=== PATIENT | female | born 1975 | race African-American/Black ===

== ENCOUNTER 2018-07-12 08:11 | Outpatient (CLI) | payer MEDICAID ==
--- NOTE | 2018-07-12 11:31 | ULT ---
TRANSABDOMINAL AND TRANSVAGINAL PELVIC ULTRASOUND: Date: 07/12/18 PROVIDED CLINICAL HISTORY: Abnormal uterine bleeding. FINDINGS: Uterus measures about 12.0 x 5.2 x 6.2 cm and demonstrates a normal sonographic appearance to the seneca rine myometrium. Endometrial thickness is about 1.3 cm. Right ovary measures about 1.6 x 2.5 x 1.5 cm and appears sonographically unremarkable. Left ovary measures about 2.5 x 4.2 x 2.1 cm and appears sonographically unremarkable. Color Doppler and spectral analysis of the ovarian waveforms demonstrates normal flow bilaterally. There is no evidence for free pelvic fluid. IMPRESSION: Nonspecific prominence of the uterine endometrium. POS: [facility]
== END 2018-07-12 08:12 | disposition home or self-care (01) ==
LOC: BICULT 08:11
PROVIDERS: ATTEND Family Medicine
DX: N93.9 Abnormal uterine and vaginal bleeding, unspecified (principal)
CPT/HCPCS: 76856

== ENCOUNTER 2018-12-11 14:47 | Outpatient (CLI) | payer MEDICAID ==
--- NOTE | 2018-12-11 15:15 | MMO ---
Bilateral MAMMO Bilat Screen [facility]. CLINICAL HISTORY: Patient is 43 years old and is seen for screening. The patient has the following family history of breast cancer: paternal grandmother, malignant (generic). The patient has no personal history of cancer. VIEWS: The views performed were: bilateral craniocaudal and bilateral mediolateral oblique. This study has been interpreted with the assistance of computer-aided detection. MAMMOGRAM FINDINGS: The breasts are heterogeneously dense, which could obscure a lesion on mammography. There are benign appearing calcifications seen in both breasts. There are no suspicious masses, suspicious calcifications, or new areas of architectural distortion. IMPRESSION: THERE IS NO MAMMOGRAPHIC EVIDENCE OF MALIGNANCY. A ROUTINE FOLLOW-UP MAMMOGRAM IN 1 YEAR IS RECOMMENDED. ACR BI-RADS Category 2 - Benign finding MAMMOGRAPHY NOTE: 1. A negative mammogram report should not delay a biopsy if a dominant of clinically suspicious mass is present. 2. Approximately 10% to 15% of breast cancers are not detected by mammography. 3. Adenosis and dense breasts may obscure an underlying neoplasm.
== END 2018-12-11 14:48 | disposition home or self-care (01) ==
LOC: BICMAMMO 14:47
PROVIDERS: ATTEND Family Medicine
DX: Z12.31 Encounter for screening mammogram for malignant neoplasm of breast (principal); Z80.3 Family history of malignant neoplasm of breast
CPT/HCPCS: 77067

== ENCOUNTER 2019-07-09 09:14 | Emergency (ER) | payer MEDICAID, SELFPAY ==
[2019-07-09 10:20] LABS: Band 4 % (5-11); Eosinophils 3 % (0-10); Hemoglobin 7.2 g/dL (12.0-16.0); Hypochromia MODERATE=16-30 cells (100X) (0-5/hpf); Lymphocytes 24 % (21-51); MDiff Complete? YES; Mean Corpuscular Hemoglobin 16.6 pg (27.0-31.0); Mean Corpuscular Volume 57.1 fL (78.0-98.0); Mean Platelet Volume 10.5 fL (7.4-10.4); Microcytosis MARKED = >30 cells (100X) (0-5/hpf); Monocytes 4 % (0-10); Neutrophil 65 % (42-75); Nucleated RBC 1 % (0); Ovalocytes SLIGHT = 2-5 cells (100X) (0-1/hpf); Platelet Count 46 thou/uL (130-400); Platelet Morphology Comment Appears Decreased; Polychromasia SLIGHT = 2-3 cells (100X) (0-2/hpf); RBC Distribution Width 19.7 % (11.5-14.5); Red Blood Cell (RBC) Count 4.31 mill/uL (4.20-5.40); Reflex for Review?? YES; Rouleaux Formation MODERATE= 6-15 cells (100X) (None Seen); Schistocytes SLIGHT = 2-5 cells (100X) (0-1/hpf); Target Cells SLIGHT = 2-5 cells (100X) (0-1/hpf); Tear Drops SLIGHT = 2-5 cells (100X) (0-1/hpf)
== END 2019-07-09 11:03 | disposition home or self-care (01) ==
LOC: ERS 09:14
DX: D64.89 Other specified anemias (principal); J45.909 Unspecified asthma, uncomplicated; F32.9 Major depressive disorder, single episode, unspecified; F17.210 Nicotine dependence, cigarettes, uncomplicated; M06.9 Rheumatoid arthritis, unspecified
CPT/HCPCS: 36415; 82374; 85025; 85060; 86850; 86900; 86901; 99284

== ENCOUNTER 2020-02-24 08:13 | Outpatient (CLI) | payer MEDICAID ==
--- NOTE | 2020-02-24 09:33 | ULT ---
ABDOMINAL ULTRASOUND: DATE: 02/24/2020. COMPARISON: None. HISTORY: Iron deficiency anemia, thrombocytopenia. TECHNIQUE: Multiplanar, petty scale sonographic imaging of the abdomen provided. FINDINGS: Images portions of the abdominal aorta, the IVC, and the pancreas appear unremarkable, all of which a re partially obscured by bowel gas. There is no focal liver lesion or intrahepatic biliary dilatatio n seen. The common bile duct measures approximately 5 mm, within normal limits. No gallbladder wall thickening or pericholecystic fluid. No gallstones are noted. [employer] repor ts a negative Crews's sign. The right kidney measures 11.1 cm in craniocaudal dimension and demonstrates no stone, hydronephrosis , or mass. The left kidney measures 13.9 cm in craniocaudal dimension and demonstrates no stone, hydronephrosis, or mass. The spleen is enlarged measuring 14.5 x 6.3 x 6.1 cm. Varices are suspected in the splenic hilum. 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 POS: [facility]
== END 2020-02-24 08:14 | disposition home or self-care (01) ==
LOC: SCSULT 08:13
PROVIDERS: ATTEND Internal Medicine Hematology & Oncology
DX: D69.6 Thrombocytopenia, unspecified (principal); R16.1 Splenomegaly, not elsewhere classified; D50.0 Iron deficiency anemia secondary to blood loss (chronic)
CPT/HCPCS: 93975

== ENCOUNTER 2020-09-24 10:18 | Outpatient (CLI) | payer OTHER | END 2020-09-24 10:19 | disposition home or self-care (01) | LOC: BICMAMMO 10:18 | PROVIDERS: ATTEND Family Medicine | DX: Z12.31 Encounter for screening mammogram for malignant neoplasm of breast (principal); Z80.3 Family history of malignant neoplasm of breast | CPT/HCPCS: 77067 ==